=== PATIENT | female | born 1955 | race African-American/Black ===

== ENCOUNTER 2019-04-20 19:13 | Emergency (ER) | payer MEDICARE, MEDICAID ==
[~2019-04-20] VITALS: Ht 188 cm; Wt 84.8 kg
[~2019-04-20 19:13] MED LIST: ACETAMINOPHEN325 M1 ORAL; AMIODARONE HCL400 M1 ORAL; ASPIRIN PO; ASPIRIN81 MG ORAL; ATENOLOL PO; AZITHROMYCIN250 MG ORAL; BACTRIM-DS1 EA ORAL; CEPHALEXIN500 MG ORAL; COLACE100 MG ORAL; CORDARONE200 M1 ORAL; DULCOLAX10 MG RC; INDAPAMIDE2.5 MG ORAL; Ipratropium Bromide HHN; LEVOTHYROXINE; LEVOTHYROXINE25 MCG ORAL; LISINOPRIL20 MG ORAL; MIRALAX119 GM PO; NORCO 5-325 TA1 EACH ORAL; NORVASC5 MG ORAL; PREDNISONE20 MG ORAL; PROMETHAZINE-C118 M1 ORAL; PROTONIX40 MG ORAL; SYNTHROID150 MCG ORAL; TENORMIN50 MG ORAL
[2019-04-20] MEDS ORDERED: LISINOPRIL5 MG ORAL (19:21)
[2019-04-20] MEDS ORDERED: ATENOLOL25 MG ORAL (19:21)
[2019-04-20 19:38] VITALS: BP 207/133
--- NOTE | 2019-04-20 19:38 | NUR ---
came to er complaints of tripped and fell hurt her left wrist and left knee denies any loc waiting for md gonzalez and x-rays
[2019-04-20] MEDS ORDERED: oxyCODONE HCL/Acetaminophen 5/325mg ORAL ONE ×2 (19:45→20:00)
[2019-04-20] MEDS ORDERED: Naproxen 500mg tab ORAL ONE (19:45)
--- NOTE | 2019-04-20 19:47 | Emergency Room Report ---
History of Present Illness General Chief Complaint: Multiple Trauma/Fall Source: Patient Present Illness HPI 63-year-old female presents with mechanical fall on outstretched hand presents with left wrist pain just prior to arrival patient states the pain is worse with movement alleviated with rest, patient tripped, she did not hit her head, no LOC patient presents for evaluation. She also endorses achy left knee pain after tripping as well Allergies: Coded Allergies: No Known Allergies (Unverified , 10/11/12) Patient History Past Medical History: see triage record Reviewed Nursing Documentation: PMH: Agreed; PSxH: Agreed Nursing Documentation-PMH Hx Cardiac Problems: Yes - hypothyroid Hx Hypertension: Yes Hx Asthma: Yes Hx COPD: Yes Hx Cancer: Yes - breast Hx Gastrointestinal Problems: No Hx Neurological Problems: Yes Hx Cerebrovascular Accident: Yes - no residual Hx Syncope: Yes Review of Systems All Other Systems: negative except mentioned in HPI Physical Exam Vital Signs Date Time Temp Pulse Resp B/P (MAP) Pulse Ox O2 Delivery O2 Flow Rate FiO2 04/20/19 19:16 97.7 96 26 207/133 (157) 99 Room Air Sp02 EP Interpretation: reviewed, normal General Appearance: well appearing, no apparent distress, alert Head: normocephalic, atraumatic Eyes: bilateral eye PERRL, bilateral eye EOMI ENT: uvula midline, moist mucus membranes Neck: supple, thyroid normal, supple/symm/no masses Respiratory: lungs clear, no respiratory distress, no retraction, no accessory muscle use Cardiovascular #1: normal peripheral pulses, regular rate, rhythm, no edema, no gallop, no murmur Gastrointestinal: non tender, soft, no guarding, no rebound Musculoskeletal: other - Left wrist tender to palpation distal radius, 2+ radial pulses, radial median ulnar nerve intact, sensation grossly intact cap refill less than 3 seconds Neurologic: alert, oriented x3 Psychiatric: mood/affect normal Skin: no rash, warm/dry Procedures Splinting Splinting : Consent: Verbal Location: Left Arm Hand-Made Type: plaster Splint: sugar-tong Pre-Proc Neuro Vasc Exam: normal Post-Proc Neuro Vasc Exam: normal Patient Tolerated: Well Complications: None Medical Decision Making Diagnostic Impression: Primary Impression: Fall Qualified Codes: W19.XXXA - Unspecified fall, initial encounter Additional Impressions: Distal radius fracture, left Qualified Codes: S52.502A - Unspecified fracture of the lower end of left radius, initial encounter for closed fracture Contusion of knee, left Qualified Codes: S80.02XA - Contusion of left knee, initial encounter ER Course 63-year-old female presents with distal radius fracture, patient will be placed in a sugar tong splint patient tolerated procedure well Neurovascular exam intact Disposition home with return precautions Other X-Ray Diagnostic Results Other X-Ray Diagnostic Results #1: X-Ray ordered: Left wrist # of Views/Limited Vs Complete: 3 View Indication: Pain EP Interpretation: Yes Interpretation: other - Distal radius fracture Impression: Other - distal radius fracture Other X-Ray Diagnostic Results #2: X-Ray ordered: Left knee # of Views/Limited Vs Complete: 2 View Indication: Pain EP Interpretation: Yes Interpretation: no dislocation, no fractures Impression: No acute disease Electronically Signed by: Ezequiel Ruby MD Last Vital Signs Date Time Temp Pulse Resp B/P (MAP) Pulse Ox O2 Delivery O2 Flow Rate FiO2 04/20/19 19:38 97.7 26 207/133 99 Room Air 04/20/19 19:37 78 Disposition: HOME, SELF-CARE Condition: Stable Scripts Naproxen* (NAPROSYN*) 250 Mg Tablet 250 MG ORAL BID PRN for For Pain, #20 TAB 0 Refills Prov: Ezequiel Ruby MD 04/20/19 Referrals: [facility] Patient Instructions: Radius Fracture With Rehab-SportsMed, Wrist Fracture, [id number] Additional Instructions: The patient was provided with discharge instructions, notified to follow-up with a primary care doctor and or specialist in the next 24-48 hours, and to return to the ED if they have worsening of their symptoms. Please note that this report is being documented using [employer] technology. This can lead to erroneous entry secondary to incorrect interpretation by the dictating instrument. Ezequiel Ruby MD Apr 20, 2019 19:47
--- NOTE | 2019-04-20 19:56 | NUR ---
x-rays completed pain meds given as orderd
[2019-04-20] MEDS ORDERED: Ketorolac 60mg Inj IM ONE (20:00)
[2019-04-20] MEDS ORDERED: Hydromorphone 0.5mg/0.5ml inj IM ONE (20:00)
[2019-04-20] MEDS ORDERED: NAPROXEN250 MG ORAL (20:53)
[2019-04-20 21:18] VITALS: BP 180/90
--- NOTE | 2019-04-20 21:18 | NUR ---
ER Nurse Note: Pt seen, treated, medically cleared for discharge by ER MD. Discharge instuctions given with repeat verbalization by pt. Emphasized to follow up with primay care provider. All orders completed per ERMD orders. Pt a&ox4, VSS, no signs of distress. ID band removed. Hand spika applied All questions answered per pt's questions. Pt left with all belongings, left with own transportation.
--- NOTE | 2019-04-21 11:08 | Diagnostic Imaging Report ---
Indication: Left wrist pain Findings: 3 views of the left wrist were obtained. There is an acute fracture of the distal radius with impaction and dorsal angulation. The bones are osteopenic. There is an old fracture of the ulnar styloid. 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 Similar findings at the base of the thumb. IMPRESSION: Acute comminuted impacted intra-articular fracture of the distal radius
--- NOTE | 2019-04-21 11:08 | Diagnostic Imaging Report ---
Indication: Left knee pain 2 views of the left knee were obtained. Findings: There is a abnormal depression of the lateral tibial plateau. This is a likely reflective of an old fracture. There are degenerative changes present superimposed are within all 3 compartments of the knee characterized by osteophytes and joint space narrowing. No acute fracture is identified. Small joint effusion may be present. IMPRESSION: Old lateral tibial plateau fracture. Osteoarthritis
== END 2019-04-20 21:18 | disposition home or self-care (01) ==
LOC: EMR 19:43
DX: S52.502A Unspecified fracture of the lower end of left radius, initial encounter for closed fracture (principal); S80.02XA Contusion of left knee, initial encounter; I10 Essential (primary) hypertension; E03.9 Hypothyroidism, unspecified; J44.9 Chronic obstructive pulmonary disease, unspecified; Z85.3 Personal history of malignant neoplasm of breast; Z86.73 Personal history of transient ischemic attack (TIA), and cerebral infarction without residual deficits; W01.0XXA Fall on same level from slipping, tripping and stumbling without subsequent striking against object, initial encounter; Y92.9 Unspecified place or not applicable
CPT/HCPCS: 29125; 96372; 99284